=== PATIENT | male | born 1970 | race African-American/Black ===

== ENCOUNTER 2020-07-03 09:02 | Emergency (ER) | payer OTHER ==
[~2020-07-03] VITALS: Ht 162.6 cm; Wt 72.6 kg
[2020-07-03 09:17] VITALS: BP 144/87; TEMP 98.6
[2020-07-03 09:57] LABS: PLATELET COUNT 453 K/uL (142-355)
[2020-07-03 10:13] LABS: POTASSIUM 4.3 mmol/L (3.6-5.2)
== END 2020-07-03 12:24 | disposition home or self-care (01) ==
LOC: ED 09:02
PROVIDERS: Family Medicine
DX: M10.9 Gout, unspecified (principal)
CPT/HCPCS: 80053; 81000; 84550; 85027; 96372; 99283; J1885